=== PATIENT | female | born 1950 | race Caucasian/White ===

== ENCOUNTER 2021-03-31 21:47 | Emergency (ER) | payer OTHER ==
--- OUTSIDE RECORDS SUMMARY | 2021-03-31 21:50 | XMS REPORT | Continuity of Care Document ---
:1950 Author Organization [facility] t Address [address] [place] [address] Care Team Providers Name Role Phone Oliveros Attending Clinician Unavailable Stanley Ramírez Attending Clinician Unavailable [email or web address] Attending Clinician Unavailable Ariankiana Attending Clinician Veronika Thornton MD Attending Clinician Veronika THORNTON Attending Clinician Unavailable Stanley Ramírez Admitting Clinician Unavailable [email or web address] Admitting Clinician Unavailable Physician, Primary or Family Admitting Clinician Unavailabl e Payers Payer Name Policy Type Policy Number Effective Date Expiration Date Migdalia ORTIZ (O) [id number] 2020 00:00:00 Problems Condition Condition Condition Status Onset Resolution Last Treating Co mments Source Name Details Category Date Date Treatment Clinician Date Essential Essential Disease Active 2011-04 Uni vers hypertensi hypertensi 04-28 [place] [facility] Allergies, Adverse Reactions, Alerts Allergy Allergy Status Severity Reaction(s) Onset Inactive Treating Comm ents Source Name Type Date Date Clinician fluorome DA Active [facility] tholone 5-18 Clear 00:00: [place] 00 [facility] ciproflo DA Active [facility] xacin 5-18 Clear 00:00: [place] 00 [facility] fluorome DA Active SV GI ULCER [facility] tholone 5-18 Clear 00:00: [place] 00 [facility] ciproflo DA Active SV MUSCLE PAIN [facility] xacin 5-18 Clear 00:00: [place] 00 [facility] naids DA Active SV [facility] 2-18 Clear 00:00: [place] 00 [facility] steriods DA Active SV IMMUNOSUPPRE HC A SSION -18 Clear 00:00: [place] 00 [facility] NO KNOWN Drug Active Univers ALLERGIE Class ity of S [facility] Social History Social Habit Start Date Stop Date Quantity Comments Source Exposure to Not sure [facility] SARS-CoV-2 [facility] (event) Branch Tobacco use and 2012-02-27 2012-02-27 Never used Universit y of exposure 00:00:00 00:00:00 [facility] Alcohol intake 2012-02-27 2012-02-27 Current University 00:00:00 00:00:00 non-drinker of [facility] alcohol We[facility] (finding) Sex Ass[birth year] At [birth year] Universit y of 00:00:00 00:00:00 [facility] Smoking Status Start Date Stop Date Source Never smoker [facility] Medications Ordered Filled Start Stop Current Ordering Indication Dosage Frequency Signature Comments Components Source Medication Medication Date Date Medication? Clinician (SIG) Name Name atenolol 2011-04 Yes 50mg Take 50 mg Uni vers (TENORMIN) 1-19 by mouth 2 ity of 25 mg 22:42: (two) [place] tablet 38 times Medical daily. Branch hydrochloro 2011-04 Yes 12.5mg Take 12.5 Univers thiazide 1-19 mg by ity of (ESIDRIX) 22:42: mouth [place] 12.5 mg 38 daily. Medical capsule Branch atenolol 2011-04 Yes 50mg Take 50 mg Uni vers (TENORMIN) 1-19 by mouth 2 ity of 25 mg 22:42: (two) [place] tablet 38 times Medical daily. Branch hydrochloro 2011-04 Yes 12.5mg Take 12.5 Univers thiazide 1-19 mg by ity of (ESIDRIX) 22:42: mouth [place] 12.5 mg 38 daily. Medical capsule Branch atenolol 2011-04 Yes 50mg Take 50 mg Uni vers (TENORMIN) 1-19 by mouth 2 ity of 25 mg 22:42: (two) [place] tablet 38 times Medical daily. Branch hydrochloro 2011-04 Yes 12.5mg Take 12.5 Univers thiazide 1-19 mg by ity of (ESIDRIX) 22:42: mouth [place] 12.5 mg 38 daily. Medical capsule Branch thyroid 2011-04 Yes 105mg Take 105 Unive rs (ARMOUR) 1-19 mg by ity of 120 mg 22:41: mouth [place] tablet 02 daily. Medical Branch thyroid 2011-04 Yes 105mg Take 105 Unive rs (ARMOUR) 1-19 mg by ity of 120 mg 22:41: mouth [place] tablet 02 daily. Medical Branch thyroid 2011-04 Yes 105mg Take 105 Unive rs (ARMOUR) 1-19 mg by ity of 120 mg 22:41: mouth [place] tablet 02 daily. Medical Branch azithromyci 2011-04 Yes [id number] Take 2 tab Univers n 1-19 PO on day ity of (ZITHROMAX [place] 250 00 take 1 tab Med ical mg tablet PO from Branch days [facility]- [facility] Yes [id number] Take 2 tab Univers n 1-19 PO on day ity of (ZITHROMAX [place] Z-[place] 250 00 take 1 tab Med ical mg tablet PO from Branch days 2- [facility]2011-04 Yes [id number] Take 2 tab Univers n 1-19 PO on day ity of (ZITHROMAX 00:00: [place] Z-[place] 250 00 take 1 tab Med ical mg tablet PO from Branch days 2-5 Procedures This patient has no known procedures. Encounters Start End Encounter Admission Attending Care Care Encounter Source Date/Time Date/Time Type Type Clinicians Facility Department ID 2019-09-23 Inpatient MART Oliveros, [facility] [id number] [facility] 11:06:00 Lew [id number] [facility] 2019-06-28 Inpatient M[facility] [id number] [facility] 14:15:00 Natalie [facility] 2021-03-17 2021-03-17 Outpatient GC_SEFP_Mer PRIV PRIV [id number] [facility] 02:08:00 02:08:00 ritt_D [id number] [facility] 2021-03-16 2021-03-16 Outpatient GC_SEFP_Mer PRIV PRIV [id number] [facility] 06:01:00 06:01:00 ritt_D [id number] [facility] 2020-07-08 2020-07-08 Outpatient NICK Ron [id number] [facility] 12:00:00 12:00:00 Natalie [id number] [facility] 2020-06-17 2020-06-17 Office Pravin Maher [facility] [id number] [facility] 10:04:58 12:25:18 Visit Deborah ThorntonPEC [id number] 3.10 Abran [id number] [facility] [id number] [facility] AND ARNOL [facility] 2020-06-17 2020-06-17 Office Ariankiana [facility] [id number] 10:04:58 12:25:18 Visit Pravin DOBBINS [id number] PET[facility] [id number] [facility] [id number] AND AMBROSE [facility] 2020-06-17 2020-06-17 Outpatient Zahra THORNTON [facility] [id number] Univers 10:15:00 10:15:00 DEBORAH jeter [facility] 2019-07-01 2019-07-01 Outpatient NICK Ron [id number] [facility] 12:00:00 12:00:00 Natalie [id number] [facility] 2019-06-27 2019-06-27 Outpatient NICK Ron [id number] [facility] 12:00:00 12:00:00 Natalie [id number] [facility] Results Test Description Test Time Test Comments Results Result Comments Source SURGICAL SPECIMENS 2019-07-04 09:30:00 RUN DATE: 07/04/19 [facility] *LIVE* PAGE 1 RUN TIME: 929 Specimen Inquiry RUN USER: INTERFACE PATIENT: MEGGAN ROSS LOC: MELBA Marcela #: [id number] AGE/SX: 69/F ROOM: RE06/28/19[facility] DR: Natalie Ramírez MD : 48 BED: DIS: STATUS: PRE REF TLOC: SPEC #: [id number] RECD: 07/01/19 STATUS: COSME HALLMAN #: [id number] DANIEL: 07/01/19 [facility] DR: Natalie Ramírez MD ENTERED: 07/03/19 SP TYPE: SURG SPEC OTHR DR: Lino Wright MD ORDERED: GM LEVEL 4 CODES: [id number] - BREAST, NOS COPIES TO: Lino Wright MD [address] [place] [address] Natalie Ramírez MD [address] [place] [address] [email or web address] PROCEDURES: GM LEVEL 4 (Incomplete) TISSUES: 1. BREAST, NOS - Breast, left, 9:00, 4 cm. FN, core bx. FINAL DIAGNOSIS Breast, left, 9:00, 4 cm. FN, core bx.: Radial scar, fibrocystic changes. Note: This represents only one case. The other is . GROSS AND MICROSCOPIC GROSS EXAMINATION: Received is/are the specimen/s designated with the appropriate dimensions and block designation: 1. Breast, left, 9:00, 4 cm. FN, core bx.: Multiple segments of pink-rothman tissue, measuring up to 1.5 cm. in greatest dimension each. MICROSCOPIC EXAMINATION: Sections reveal radial scar, and fibrocystic changes. No ADH, DCIS, LCIS, or invasive carcinoma is identified. CONTINUED ON NEXT PAGE RUN DATE: 07/04/19 [facility] *LIVE* PAGE 2 RUN TIME: 929 Specimen Inquiry RUN USER: INTERFACE SPEC #: [id number] PATIENT: MEGGAN ROSS #[id number] (Continued)--------- --- POST-OP DIAGNOSIS Atec marker PRE-OP DIAGNOSIS Architectural distortion, radial scar vs. carcinoma REVIEWED BY: Signed SIGNATURE ON FILE Lubna Lopez MD 07/04/1930 END OF REPORT SURGICAL SPECIMENS 2019-07-04 09:30:00 RUN DATE: 07/04/19 [facility] *LIVE* PAGE 1 RUN TIME: 930 Specimen Inquiry RUN USER: INTERFACE PATIENT: MEGGAN ROSS LOC: MELBA Medrano #: [id number] AGE/SX: 69/F ROOM: RE06/28/19REG DR: Natalie Ramírez MD : 48 BED: DIS: STATUS: PRE REF TLOC: SPEC #: [id number] RECD: 07/01/19 STATUS: COSME REQ #: [id number] DANIEL: 07/01/[address]: Natalie Ramírez MD ENTERED: 07/03/19 SP TYPE: SURG SPEC OTHR DR: Lino Wright MD ORDERED: GM LEVEL 4 CODES: [id number] - BREAST, NOS COPIES TO: Lino Wright MD [address] [place] [address] Natalie Ramírez MD [address] [place], [place] [id number] [email or web address] PROCEDURES: GM LEVEL 4 (Incomplete) TISSUES: 1. BREAST, NOS - Breast, right, 4:00, 3 cm. FN, core bx. FINAL DIAGNOSIS Breast, right, 4:00, 3 cm. FN, core bx.: Atypical complex sclerosing papillary lesion (see microscopic examination). Note: This represents only one case. The other is . GROSS AND MICROSCOPIC GROSS EXAMINATION: Received is/are the specimen/s designated with the appropriate dimensions and block designation: 1. Breast, right, 4:00, 3 cm. FN, core bx.: 3 segments of pink-rothman tissue, measuring up to 1.5 cm. in greatest dimension each. MICROSCOPIC EXAMINATION: Sections reveal atypical complex sclerosing papillary lesion. Immunostaining reveals that some of the cells are negative for CK 5/6 and without myoepithelial cell lining (P63 and smooth muscle myosin). 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 Excision of the lesion for further evaluation is recommended if clinically indicated. (When special stains have been reviewed, the appropriate positive/negative CONTINUED ON NEXT PAGE RUN DATE: 07/04/19 [facility] *LIVE* PAGE 2 RUN TIME: 930 Specimen Inquiry RUN USER: INTERFACE SPEC #: [id number] PATIENT: MEGGAN ROSS #[id number] (Continued)--------- --- GROSS AND MICROSCOPIC (Continued) controls have been reviewed and are appropriately positive/negative). POST-OP DIAGNOSIS Ultraclip coil PRE-OP DIAGNOSIS Right breast mass, DDX: LONNIE CA REVIEWED BY: Signed SIGNATURE ON FILE Lubna Lopez MD 07/04/19 0930 END OF REPORT
[2021-04-01 00:04] LABS: Absolute Lymphocytes (CBC) 1.5 K/uL (0.7-4.9); Basophils % 0.9 % (0-1.3); Hematocrit 38.3 % (36.0-45.0); Lymphocytes % 17.1 % (15.3-44.8); MPV 9.3 fL (7.6-11.3); RBC Red Blood Cell Count 4.27 M/uL (3.86-4.86)
[2021-04-01 00:05] LABS: Protime INR 0.97
[2021-04-01 00:19] LABS: Urine Blood Negative (Negative); Urine Glucose Negative (Negative); Urine Protein Negative (Negative)
[2021-04-01 00:20] LABS: ALT/SGPT 58 U/L (12-78); AST/SGOT 30 U/L (15-37); Albumin 3.7 g/dL (3.4-5.0); Alkaline Phosphatase 152 U/L (45-117); BUN Blood Urea Nitrogen 12 mg/dL (7-18); Bicarbonate 26 mmol/L (21-32); Bilirubin Direct 0.1 mg/dL (0-0.2); Bilirubin Total 0.4 mg/dL (0.2-1.0); Glucose Level 134 mg/dL (74-106); Magnesium 2.3 mg/dL (1.8-2.4); NT PRO-BNP 222 pg/mL (<125); Potassium 4.1 mmol/L (3.5-5.1); Protein, Total 7.5 g/dL (6.4-8.2); Sodium Level 132 mmol/L (136-145); Troponin (Emerg Dept Use Only) < 0.02 ng/mL (0.0-0.045)
[2021-04-01] MEDS ORDERED: HYDRALAZINE HCL 20 MG/ML VIAL ONE (00:45)
[2021-04-01] MEDS ORDERED: NA CHLORIDE 0.9% 500 ML ONE (00:46)
--- NOTE | 2021-04-01 02:13 | EDPHYS ---
Physician Documentation [facility] Name: Susanna Yoo Age: 70 yrs Sex: Female : 1950 Arrival Date: 03/31/2021 Time: 21:48 Bed 25 Private MD: ED Physician Rick Myers HPI: 03/31 22:10 This 70 yrs old Female presents to ER via Ambulatory with complaints of Blood Pressure jm Problem. 22:10 Onset: The symptoms/episode began/occurred gradually, 1 day(s) ago. This is a jmm 70-year-old female with a history of hypertension the presents emerged part with complaints of difficulty with her blood pressure. Patient states that she noticed sensation of feeling drugged after taking Sudafed for upper respiratory infection. Patient also took Mucinex. Patient states that she has had difficulty controlling her blood pressure since taking medication. She is attempted to take clonidine without much relief.. Historical: - Allergies: 22:09 fluoroquinolones; lp1 22:09 Ciprofloxacin; lp1 - Home Meds: 22:09 atenolol 50 mg Oral tab 1 tab 2 times per day [Active]; Clonidine Oral [Active]; lp1 Spironolactone Oral [Active]; - PMHx: 22:09 Hypertensive disorder; lp1 - PSHx: 22:09 Breast sx; hysterectomy; heart ablasion; knee replacement; lp1 - Immunization history:: Adult Immunizations up to date. - Social history:: Smoking status: Patient denies any tobacco usage or history of. ROS: 22:10 Constitutional: Negative for fever, chills, and weight loss, Cardiovascular: Negative [facility] for chest pain, palpitations, and edema. 22:10 Constitutional: Positive for fatigue. 22:10 Respiratory: Positive for cough. 22:10 All other systems are negative. Exam: 22:10 Constitutional: This is a well developed, well nourished patient who is awake, alert, jmm and in no acute distress. Head/Face: atraumatic. Eyes: EOMI, no conjunctival erythema appreciated ENT: Moist Mucus Membranes Neck: Trachea midline, Supple Chest/axilla: Normal chest wall appearance and motion. Cardiovascular: Regular rate and rhythm. No edema appreciated Respiratory: Normal respirations, no respiratory distress appreciated Abdomen/GI: Non distended, soft Back: Normal ROM Skin: General appearance color normal MS/ Extremity: Moves all extremities, no obvious deformities appreciated, no edema noted to the lower extremities Neuro: Awake and alert, normal gait Psych: Behavior is normal, Mood is normal, Patient is cooperative and pleasant Vital Signs: 22:06 BP 158 / 88; Pulse 69; Resp 18; Temp 97.9(O); Pulse Ox 99% on R/A; Weight 86.18 kg (R); lp1 Height 5 ft. 8 in. (172.72 cm); Pain 0/10; 04/01 01:07 BP 156 / 81; Pulse 75; Resp 17; Pulse Ox 99% 0 lpm ; Pain 0/10; sv1 01:58 BP 138 / 73; Pulse 74; Resp 21; Pulse Ox 98% 0 lpm ; Pain 0/10; sv1 02:24 BP 131 / 67; Pulse 72; Resp 18; Temp 97.9; Pulse Ox 97% ; Pain 0/10; sv1 03/31 22:06 Body Mass Index 28.89 (86.18 kg, 172.72 cm) lp1 MDM: 03/31 23:14 Patient medically screened. [facility] 04/01 02:11 Data reviewed: vital signs, nurses notes. [facility] 02:11 Counseling: I had a detailed discussion with the patient and/or guardian regarding: the [facility] historical points, exam findings, and any diagnostic results supporting the discharge/admit diagnosis, lab results, radiology results, the need for outpatient follow up, to return to the emergency department if symptoms worsen or persist or if there are any questions or concerns that arise at home. 03/31 22:10 Order name: Basic Metabolic Panel; Complete Time: 00:28 [facility] 03/31 22:10 Order name: CBC with Diff; Complete Time: 00:28 [facility] 03/31 22:10 Order name: LFT's; Complete Time: 00:28 [facility] 03/31 22:10 Order name: Magnesium; Complete Time: 00:28 [facility] 03/31 22:10 Order name: NT PRO-BNP; Complete Time: 00:28 [facility] 03/31 22:10 Order name: PT-INR; Complete Time: 00:28 [facility] 03/31 22:10 Order name: Troponin (emerg Dept Use Only); Complete Time: 00:28 [facility] 03/31 22:10 Order name: XRAY Chest (1 view) [facility] 03/31 22:10 Order name: EKG; Complete Time: 22:11 [facility] 03/31 22:10 Order name: Cardiac monitoring; Complete Time: 23:48 [facility] 03/31 22:10 Order name: EKG - Nurse/Tech; Complete Time: 00:13 [facility] 04/01 00:19 Order name: Urine Dipstick-Ancillary; Complete Time: 00:28 [facility] 03/31 22:10 Order name: IV Saline Lock; Complete Time: 23:48 [facility] 03/31 22:10 Order name: Labs collected and sent; Complete Time: 23:48 [facility] 03/31 22:10 Order name: O2 Per Protocol; Complete Time: 00:13 [facility] 03/31 22:10 Order name: O2 Sat Monitoring; Complete Time: 00:13 [facility] 03/31 23:15 Order name: Urine Dipstick-Ancillary (obtain specimen); Complete Time: 00:19 [facility] Administered Medications: 01:03 Drug: hydrALAZINE 5 mg Route: IVP; Site: left antecubital; sv1 02:27 Follow up: Response: No adverse reaction; Blood pressure is lowered sv1 01:04 Drug: NS 0.9% 500 ml Route: IV; Rate: bolus; Site: left antecubital; sv1 02:28 Follow up: IV Status: Completed infusion; IV Intake: 1000ml sv1 Disposition: 02:47 Co-signature as Attending Physician, Rick Myers MD. rn Disposition Summary: 04/01/21 02:12 Discharge Ordered Location: Home [facility] Condition: Stable [facility] Diagnosis - Hypertension [facility] Followup: [facility] - With: Private Physician - When: 2 - 3 days - Reason: Recheck today's complaints, Continuance of care, Re-evaluation by your physician Discharge Instructions: - Discharge Summary Sheet [facility] - DASH Eating Plan [facility] Forms: - Medication Reconciliation Form [facility] - Thank You Letter [facility] - Antibiotic Education [facility] - Prescription Opioid Use [facility] Signatures: Dispatcher [employer] Sushil Moreau PA PA jmm Nieto, Roman, MD MD rn Pena, Laura RN RN lp1 Cortes Iverson RN RN sv1
--- NOTE | 2021-04-01 02:13 | ER ---
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 Coronavirus screen: At this time, the client does not indicate any symptoms associated with coronavirus-19. The client reports previous COVID testing was negative. Date of collection: March 23, 2021. Ebola Screen: No symptoms or risks identified at this time. Initial Sepsis Screen: Does the patient meet any 2 criteria? No. Patient's initial sepsis screen is negative. Does the patient have a suspected source of infection? No. Patient's initial sepsis screen is negative. Risk Assessment: Do you want to hurt yourself or someone else? Patient reports no desire to harm self or others. Onset of symptoms was March 31, 2021. 22:06 Method Of Arrival: Ambulatory lp1 22:06 Acuity: BIGG 3 lp1 Triage Assessment: 04/01 01:06 General: Appears uncomfortable, Behavior is cooperative, appropriate for age. sv1 Historical: - Allergies: 03/31 22:09 fluoroquinolones; lp1 22:09 Ciprofloxacin; lp1 - Home Meds: 22:09 atenolol 50 mg Oral tab 1 tab 2 times per day [Active]; Clonidine Oral [Active]; lp1 Spironolactone Oral [Active]; - PMHx: 22:09 Hypertensive disorder; lp1 - PSHx: 22:09 Breast sx; hysterectomy; heart ablasion; knee replacement; lp1 - Immunization history:: Adult Immunizations up to date. - Social history:: Smoking status: Patient denies any tobacco usage or history of. Screenin:11 Abuse screen: Denies threats or abuse. Denies injuries from another. Nutritional lp1 screening: No deficits noted. Tuberculosis screening: No symptoms or risk factors identified. Fall Risk None identified. Assessment: 04/01 01:04 Reassessment: %00 ml iv bolus started. Hydralazine 5 mg given IVP. Initial BP 156/84. sv1 Will continue to monitor.. Pain: Denies pain. 02:26 Reassessment: The patient's bp is 131/67. Cleared for discharge to home by the sv1 provider.. Vital Signs: 03/31 22:06 BP 158 / 88; Pulse 69; Resp 18; Temp 97.9(O); Pulse Ox 99% on R/A; Weight 86.18 kg (R); lp1 Height 5 ft. 8 in. (172.72 cm); Pain 0/10; 04/01 01:07 BP 156 / 81; Pulse 75; Resp 17; Pulse Ox 99% 0 lpm ; Pain 0/10; sv1 01:58 BP 138 / 73; Pulse 74; Resp 21; Pulse Ox 98% 0 lpm ; Pain 0/10; sv1 02:24 BP 131 / 67; Pulse 72; Resp 18; Temp 97.9; Pulse Ox 97% ; Pain 0/10; sv1 03/31 22:06 Body Mass Index 28.89 (86.18 kg, 172.72 cm) lp1 ED Course: 03/31 21:48 Patient arrived in ED. kc5 21:52 Sushil Deleon PA is PHCP. jmm 21:52 Rick Myers MD is Attending Physician. jmm 21:56 Cortes Iverson, OLENA is Primary Nurse. sv1 22:09 Triage completed. lp1 22:09 Arm band placed on. lp1 22:40 XRAY Chest (1 view) In Process Unspecified. EDMS 04/01 01:04 Patient has correct armband on for positive identification. Placed in gown. Bed in low sv1 position. Call light in reach. Side rails up X2. 01:04 Inserted saline lock: 20 gauge in left antecubital area, using aseptic technique. sv1 02:25 No provider procedures requiring assistance completed. sv1 02:25 IV discontinued. sv1 Administered Medications: 01:03 Drug: hydrALAZINE 5 mg Route: IVP; Site: left antecubital; sv1 02:27 Follow up: Response: No adverse reaction; Blood pressure is lowered sv1 01:04 Drug: NS 0.9% 500 ml Route: IV; Rate: bolus; Site: left antecubital; sv1 02:28 Follow up: IV Status: Completed infusion; IV Intake: 1000ml sv1 Intake: 02:28 IV: 1000ml; Total: 1000ml. sv1 Outcome: 02:12 Discharge ordered by . charmaine 02:25 Discharged to home ambulatory, with family. sv1 02:25 Condition: improved 02:25 Discharge instructions given to patient, family. 02:29 Patient left the ED. sv1 Signatures: Dispatcher [employer] EDMS Sushil Deleon PA PA jmm Pena, Laura, OLENA RN lp1 Marina Candelario kc5 Cortes Iverson RN RN sv1
[2021-04-01 02:35] VITALS: TEMP 97.9
[2021-04-01 02:40] VITALS: BP 131/67; O2SAT 97
--- NOTE | 2021-04-01 07:47 | RAD REPORT ---
EXAM DESCRIPTION: RAD - Chest Single View - 03/31/2021 10:41 pm CLINICAL HISTORY: COUGH COMPARISON: No comparisons FINDINGS: Lines: None. Lungs: No evidence of edema or pneumonia. Pleural: No significant pleural effusions or pneumothorax. Cardiac: Cardiomegaly. Bones: No acute fractures. Other: IMPRESSION: No acute cardiopulmonary disease.
== END 2021-04-01 02:29 | disposition home or self-care (01) ==
LOC: ER 21:47
DX: I10 Essential (primary) hypertension (principal); Z88.1 Allergy status to other antibiotic agents; Z88.8 Allergy status to other drugs, medicaments and biological substances
CPT/HCPCS: 96361; 93005; 85025; 80048; 36415; 83735; 85610; 80076; 81003; 84484; 83880; 71045; 96374; 99284; J0360; J7040